=== PATIENT | male | born 1960 | race Caucasian/White ===

== ENCOUNTER → 2017-01-05 | Day surgery (SDC) | payer OTHER ==
[2016-12-30 12:35] VITALS: BP 138/90
[2017-01-04] MEDS: FENTANYL PF 100 MCG/2ML IV PRN ×2 (17:56→18:15)
[~2017-01-05] VITALS: Ht 181.6 cm; Wt 73.5 kg
[~2017-01-05] MED LIST: ACETAMINOPHEN 325 MG TABLET PO ONE; ACETAMINOPHEN 500 MG TABLET ONE; BUPIVACAINE 0.25% INFIL ONE; BUPIVACAINE/PF 0.25% ONE; BUPIVACAINE/PF-EPI 0.25% 1:200K ONE; BUPIVACAINE/PF-EPI 0.5% 1:200K ONE; CEFOTETAN 1 GM ONE; DEXAMETHASONE 4 MG/ML, 1ML ONE; FENTANYL PF 100 MCG/2ML ONE; FENTANYL PF 250 MCG/5ML ONE; GLYCOPYRROLATE 0.2MG/1ML ONE; KETAMINE 10 MG/ML, 20ML ONE; KETOROLAC 30 MG/1 ML IM/IV PRN; KETOROLAC 30 MG/1 ML ONE; LABETALOL 5MG/ML, 20ML IV PRN; LACTATED RINGERS 1,000 ML IV SCH; LIDOCAINE 1%, 2ML ONE; LIDOCAINE 1%, 2ML SQ PRN; LORA10TA75 PO; MEPERIDINE/PF 25MG/0.5ML IVPush PRN; MIDAZOLAM 1 MG/ML, 2ML ONE; MULT1TAB60 PO; NAPR220C2 PO; NEOSTIGMINE 1 MG/ML, 10ML ONE; ONDANSETRON 2MG/ML, 2ML IVPush PRN; ONDANSETRON 2MG/ML, 2ML ONE; OXYcodone 5 MG/5 ML ORAL.SOL UDC PO PRN; PHENYLEPHRINE 10 MG/ML ONE; PREGABALIN 25 MG CAPSULE PO ONE; PROMETHAZINE 25 MG/ML, 1ML IV PRN; PROPOFOL 10 MG/ML, 20ML ONE; ROCURONIUM 10 MG/ML ONE; SERT100T5 PO; hydrALAzine 20 MG/ML, 1ML IV PRN
== END | disposition home or self-care (01) ==
LOC: OUT 11:13
PROVIDERS: ATTEND Surgery
DX: K40.90 Unilateral inguinal hernia, without obstruction or gangrene, not specified as recurrent (principal); N43.3 Hydrocele, unspecified; J45.909 Unspecified asthma, uncomplicated; M19.90 Unspecified osteoarthritis, unspecified site; Z98.890 Other specified postprocedural states; Z72.89 Other problems related to lifestyle; Z82.61 Family history of arthritis; Z80.0 Family history of malignant neoplasm of digestive organs; Z91.048 Other nonmedicinal substance allergy status
CPT/HCPCS: 49650; 55040; C1781; J1100; J1885; J2250; J2370; J2405; J2704; J2710; J3010; J3490; J7120; S2900; S0074